=== PATIENT | male | born 1960 ===

== ENCOUNTER 2025-02-19 22:13 | Emergency (ER) | payer BC ==
[2025-02-19] MEDS: Gabapentin 100 MG Cap PO ONE (23:03)
[2025-02-19] MEDS: Acetaminophen/HYDROcodone 325-10 MG Tab PO ONE (23:04)
[2025-02-23 05:07] LABS: GABAPENTIN <0.8 ug/mL (2.0-20.0)
== END 2025-02-19 23:38 | disposition home or self-care (01) ==
LOC: MW.ED 22:13
DX: M54.12 Radiculopathy, cervical region (principal); Z75.3 Unavailability and inaccessibility of health-care facilities; E78.00 Pure hypercholesterolemia, unspecified; Z79.899 Other long term (current) drug therapy
CPT/HCPCS: 80171; 99283; A9270; 99282